=== PATIENT | male | born 1970 | race Caucasian/White ===

== ENCOUNTER 2022-07-22 09:15 | Emergency (ER) | payer OTHER ==
[~2022-07-22] VITALS: Ht 175.3 cm; Wt 85.0 kg
[2022-07-22 09:35] VITALS: BP 138/92
[2022-07-22 09:37] VITALS: BP 137/82
[2022-07-22 10:00] VITALS: BP 127/83
[2022-07-22 10:30] VITALS: BP 127/83
== END 2022-07-22 10:35 | disposition home or self-care (01) | DRG 563 ==
LOC: ED 09:15
PROC: 2W3KX1Z Immobilization of Left Finger using Splint (ICD-10-PCS; principal; 2022-07-22)
DX: S62.605A Fracture of unspecified phalanx of left ring finger, initial encounter for closed fracture (principal); W19.XXXA Unspecified fall, initial encounter

== ENCOUNTER 2023-12-11 10:27 | Observation (INO) | payer OTHER ==
[~2023-12-11] VITALS: Ht 175.3 cm; Wt 89.9 kg
[2023-12-11] VITALS (25 sets, daily range): BP systolic 88–137; BP diastolic 57–83
[2023-12-11] MEDS ORDERED: NITROGLYCERIN 0.4 MG/TAB SL ONE (10:45)
[2023-12-11] MEDS ORDERED: ASPIRIN 81 MG/TAB PO ONE (10:45)
[2023-12-11 11:02] LABS: BASO% 0.4 % (0-3); EOS% 1.3 % (0-8); HEMATOCRIT 43.8 % (39.0-50.0); HEMOGLOBIN 15.4 g/dl (14.0-18.0); IMMATURE GRANULOCYTES 0.2 % (0.0-5.0); LYMPH% 34.6 % (15-41); MEAN CELL VOLUME 94.4 fL CALC (80.0-100.0); MEAN CORPUSCULAR HGB 33.2 pG CALC (26.0-32.0); MEAN CORPUSCULAR HGB CONC 35.2 g/dL CAL (32.0-36.0); MONO% 8.4 % (2-13); NEUT# 2.56 thou/uL (1.82-7.42); NEUT% 55.1 % (42-76); RED BLOOD COUNT 4.64 mill/uL (4.70-6.10)
[2023-12-11 11:12] LABS: ALKALINE PHOSPHATASE 65 u/l (38-126); ANION GAP 15 (6-22 (CALC)); BILIRUBIN, TOTAL 0.9 mg/dL (0.2-1.3); BUN 17 mg/dL (9-20); BUN/CREATININE RATIO 10 (12-20 (CALC)); CARBON DIOXIDE 22 mmol/l (22-30); CHLORIDE 106 mmol/l (95-108); CREATININE 1.7 mg/dL (0.7-1.3); ESTIMATED GFR 48 ML/MIN (>=90 (CALC)); POTASSIUM 4.7 mmol/l (3.5-5.1); SGOT/AST 37 u/l (17-59); SODIUM 139 mmol/l (137-146); TOTAL PROTEIN 8.5 g/dL (6.3-8.2)
[2023-12-11] MEDS ORDERED: ONDANSETRON HCl 4 MG/2 ML SDV IV ONE (11:20)
[2023-12-11] MEDS ORDERED: SODIUM CHLORIDE 0.9% 1,000 ML IV ONE (11:35)
[2023-12-11 11:42] LABS: TSH, 3RD GENERATION 3.94 uIU/mL (0.47 - 4.68)
[2023-12-11] MEDS ORDERED: MAGNESIUM HYDROXIDE 30 ML UDC PO PRN (13:55)
[2023-12-11] MEDS ORDERED: NITROGLYCERIN 0.4 MG/TAB SL PRN (13:55)
[2023-12-11] MEDS ORDERED: SODIUM CHLORIDE 0.9% 1,000 ML IV PRN (13:55)
[2023-12-11] MEDS ORDERED: ACETAMINOPHEN 325 MG/TAB PO PRN (13:55)
[2023-12-11] MEDS ORDERED: MORPHINE SULFATE 4 MG/ML VIAL IV PRN (13:55)
[2023-12-11] MEDS ORDERED: ENOXAPARIN SODIUM 40 MG/0.4 ML SYR SC SCH (21:00)
[2023-12-11] MEDS ORDERED: ATORVASTATIN CALCIUM 40 MG/TAB PO SCH (21:00)
[2023-12-11] MEDS ORDERED: METOPROLOL TARTRATE 25 MG/TAB PO SCH (21:00)
[2023-12-12 03:34] VITALS: BP 109/72
[2023-12-12 04:17] VITALS: BP 109/72
[2023-12-12 05:38] LABS: BASO% 1.1 % (0-3); EOS% 1.7 % (0-8); HEMATOCRIT 39.9 % (39.0-50.0); HEMOGLOBIN 14.2 g/dl (14.0-18.0); LYMPH% 50.4 % (15-41); MEAN CELL VOLUME 94.8 fL CALC (80.0-100.0); MEAN CORPUSCULAR HGB 33.7 pG CALC (26.0-32.0); MEAN CORPUSCULAR HGB CONC 35.6 g/dL CAL (32.0-36.0); MONO% 9.7 % (2-13); NEUT# 1.71 thou/uL (1.82-7.42); NEUT% 37.1 % (42-76); RED BLOOD COUNT 4.21 mill/uL (4.70-6.10); RED CELL DISTRI WIDTH 11.9 % (11.5-15.5)
[2023-12-12 06:04] LABS: ALBUMIN 4.4 g/dL (3.2-5.0); BILIRUBIN, TOTAL 0.6 mg/dL (0.2-1.3); CHOLESTEROL HDL RATIO 6.1 (<4.4 (CALC)); CREATININE 1.1 mg/dL (0.7-1.3); MAGNESIUM 1.9 mg/dL (1.6-2.3); POTASSIUM 4.8 mmol/l (3.5-5.1); TOTAL PROTEIN 7.2 g/dL (6.3-8.2)
[2023-12-12 07:27] VITALS: BP 123/84
[2023-12-12] MEDS ORDERED: ASPIRIN 81 MG/TAB PO SCH (09:00)
[2023-12-12] MEDS ORDERED: LIPITOR10 M1 PO (09:57)
[2023-12-12 10:39] VITALS: BP 121/66
== END 2023-12-12 10:55 | disposition home or self-care (01) | DRG 313 ==
LOC: ED 10:27 → ED-I 13:15 → ED 13:44 → MS2 13:45
PROVIDERS: Family Medicine; ADMIT Student in an Organized Health Care Education/Training Program; ATTEND Student in an Organized Health Care Education/Training Program
DX: R07.9 Chest pain, unspecified (principal); N17.9 Acute kidney failure, unspecified; I10 Essential (primary) hypertension; E78.5 Hyperlipidemia, unspecified
CPT/HCPCS: J1650